=== PATIENT | male | born 1940 | race Caucasian/White ===

== ENCOUNTER 2017-01-26 19:37 | Emergency (ER) | payer MEDICARE, MEDICAID ==
[~2017-01-26 19:37] MED LIST: ASPIRIN EC81 MG PO; CARDURA4 MG PO; FEOSOL-DPS325 MG PO; GLUCOTROL XL DPS5 MG PO; JANUVIA100 MG PO; LASIX DPS40 MG PO; LEVEMIR100 UNIT/1 SQ; LIPITOR DPS40 MG PO; NEXIUM40 MG PO; NITROSTAT0.4 MG SL; NORVASC DPS10 MG PO; PLAVIX75 MG PO; PRESERVISION A1 EACH PO; RANEXA500 MG PO; SYNTHROID125 MCG PO; TEGRETOL DPS200 MG PO; TOPROL XL25 MG PO; ZESTRIL DPS10 MG PO
--- NOTE | 2017-02-05 07:29 | ER ---
ADMIT: 01/26/2017 RM/LOC: ER [facility] MR#: [id number] [address] [id number] [address] [place] [address] Emergency Room Report SEX: M AGE: 76 : 1940 DATE: 01/26/2017 ADDENDUM: A 76-year-old male, who presents with pain in his right groin. He had no falls or injuries he is aware of. He has not had any urinary symptoms. It is tender when he pushes on this area. He has had no history of hernias and has no activities that he reports that would have brought on hernia. On physical exam, he is somewhat large, so it was tough to do a great physical exam. I did not see a bulge or feel an obvious defect, but he is quite tender in the area of right inguinal canal. Testicles are normal. His abdomen is otherwise unremarkable and soft. I did get an ultrasound of his groin and there were no signs of any hernia. We did get a urine which shows he might have a slight urinary tract infection. He was given some pain control here and he is feeling better. He will be discharged home after getting Bactrim here. To be on Bactrim b.i.d. for the next 3 days. To use some [place] only as needed for pain, and to follow up next week with Dr. Llanos. Kyle Gamino MD/ stewart JOB #: [id number] CC: Kyle Gamino MD, Attending Physician Shahrzad Llanos MD, Family Physician
== END 2017-01-26 23:35 | disposition home or self-care (01) ==
LOC: ER 19:37
DX: N39.0 Urinary tract infection, site not specified (principal); R10.30 Lower abdominal pain, unspecified; E11.9 Type 2 diabetes mellitus without complications; I10 Essential (primary) hypertension; E78.5 Hyperlipidemia, unspecified; Z79.82 Long term (current) use of aspirin; Z88.8 Allergy status to other drugs, medicaments and biological substances

== ENCOUNTER 2017-04-07 08:13 | Day surgery (SDC) | payer MEDICARE, MEDICAID ==
[~2017-04-07] VITALS: Ht 177.8 cm; Wt 103.2 kg
--- NOTE | 2017-04-10 19:20 | OR ---
ADMIT: 04/07/2017 RM/LOC: [facility] MR#: [id number] [id number] [address] [place] [address] Operative/Delivery Room Report SEX: M AGE: 76 : 1940 SURGERY DATE: 04/07/2017 SURGEON: Phillip Singh MD PREOPERATIVE DIAGNOSES: 1. Some gastroesophageal reflux disease. 2. Dysphagia. POSTOPERATIVE DIAGNOSIS: Hiatal hernia with some mild-appearing gastritis and esophagitis. No masses, ulcers, or lesions seen. PROCEDURES: EGD with biopsies of: 1. The gastric antrum. 2. The GE junction. ANESTHESIA: MAC anesthesia. ESTIMATED BLOOD LOSS: Less than 5 mL. INDICATION FOR PROCEDURE: Please see H and P. PROCEDURE IN DETAIL: After the risks, benefits, possible complications, and the alternatives have been explained, and informed consent had been obtained, the patient was taken back to the procedure room, underwent sedation. Flexible EGD scope was introduced, slowly maneuvered down the esophagus. The GE junction seen in picture #4, little bit of irritation there. No mass. No ulcers. No lesions. Maneuvered through here, down through the stomach, down into the second portion of the duodenum seen in the first picture. Duodenum and duodenal bulb appeared okay. The gastric antrum and body had some mild irritation, they did do some biopsies here to rule out H. pylori. Retroflexion of the scope shows a small hiatal hernia, but no other mass or lesion was noted. After biopsying the antrum, I came back up, I did biopsy of the distal esophagus. There was no significant stricturing there. I saw no other mass or lesion on the way out through remainder of the thoracic or cervical esophagus. The scope was removed and the procedure terminated. Tolerated it well. He was taken to recovery room in stable and satisfactory condition. Phillip Singh MD/ stewart JOB #: [id number] CC: Phillip Singh MD, Attending Physician Shahrzad Llanos MD, Family Physician
== END 2017-04-07 12:00 | disposition home or self-care (01) ==
LOC: SSS 08:13
PROC: 0DB48ZX Excision of Esophagogastric Junction, Via Natural or Artificial Opening Endoscopic, Diagnostic (ICD-10-PCS; principal; 2017-04-07)
PROC: 0DB68ZX Excision of Stomach, Via Natural or Artificial Opening Endoscopic, Diagnostic (ICD-10-PCS; principal; 2017-04-07)
DX: K44.9 Diaphragmatic hernia without obstruction or gangrene (principal); K29.70 Gastritis, unspecified, without bleeding; I10 Essential (primary) hypertension; I25.2 Old myocardial infarction; I25.10 Atherosclerotic heart disease of native coronary artery without angina pectoris; E11.9 Type 2 diabetes mellitus without complications; Z88.1 Allergy status to other antibiotic agents; Z90.49 Acquired absence of other specified parts of digestive tract; Z95.5 Presence of coronary angioplasty implant and graft; Z98.890 Other specified postprocedural states

== ENCOUNTER → 2017-04-25 | Outpatient (CLI) | payer MEDICARE, MEDICAID | END | disposition home or self-care (01) | LOC: RAD.S 09:27 | DX: R13.10 Dysphagia, unspecified (principal) ==